=== PATIENT | male | born 1940 | race Caucasian/White ===

== ENCOUNTER 2024-10-08 07:18 | Day surgery (SDC) | payer BC, SELFPAY ==
[2024-10-08] VITALS (10 sets, daily range): BP systolic 96–142; BP diastolic 56–80; BMI 17.9
[2024-10-08] MEDS: LOW STRENGTH ASPIRIN 324 MG PO (07:57)
[2024-10-08] MEDS: NSS 219 ML IV (07:59)
--- NOTE | 2024-10-08 09:03 | ITS.CL.CATH ---
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
Cardiac Catheterization
Procedure Report:
LEFT HEART CATHETERIZATION
Date of Procedure: October 08, 2024
Procedures performed:
1: Coronary angiography
Primary Care Physician: Evelia San DO
Primary Miller Head: Dr. Jesse Rooney
INDICATION: The patient is an 83-year-old man with a past medical history significant for recent pacemaker in January of last year for intermittent third-degree AV block who is referred for coronary angiography in preparation for aortic valve
intervention. He also has persistent atrial fibrillation and is on Xarelto which was held for the procedure. On his September 29 pacemaker check he is in 93% A-fib. He is 98% ventricularly paced. But not ventricularly dependent on his recent pacer
check. He has some exertional dyspnea and chest tightness. Echocardiography performed on September 10 showed severe aortic valvular stenosis with a mean gradient of 56 mmHg and a valve area 0.8 cm�.
ACCESS: The patient was prepped and draped in usual sterile fashion. A 6 Polish sheath was placed in the right radial artery using the Seldinger over the wire technique.
HEMODYNAMIC FINDINGS (mmHg):
LV(s/d,EDP): Valve not crossed
Ao(s/d,m): 126/65, 85
ANGIOGRAPHIC FINDINGS:
Single-plane Left Ventriculography in STEWART Projection: Valve not crossed
Coronary Angiography:
Dominance: Right
Left Main: Large caliber, widely patent.
Left Anterior Descending: The left anterior descending artery is a large caliber vessel that is heavily calcified throughout its course. The proximal and mid vessel have mild to moderate nonobstructive luminal irregularity. The distal LAD is also
calcified and has a 70 to 80% stenosis as it wraps around the apex. Despite this there is MERY-3 distal flow. The LAD gives rise to 1 medium caliber diagonal branch that appears widely patent with mild luminal irregularities and normal flow.
Left Circumflex: The left circumflex is a large-caliber nondominant system that gives rise to 2 major obtuse marginal branches. The proximal circumflex has a smooth 40 to 50% stenosis. This is followed by a smooth 40% stenosis in the mid
circumflex. The first obtuse marginal branch is a relatively large vessel that has diffuse moderate disease with at worst a smooth proximal 50% stenosis. The second obtuse marginal branch is a smaller vessel that is ectatic in the proximal portion
but appears free of focal obstructive disease. These vessels have normal flow.
Right Coronary: The right coronary artery is a large-caliber dominant vessel that gives rise to a small caliber posterior descending artery and small posterior left ventricular branch system. The RCA ostium is calcified with complex 80% disease.
The mid right coronary artery has prominent ectasia and luminal irregularity suggestive of a prior healed ruptured plaque. Just beyond the acute margin is a smooth 70 to 80% stenosis followed by poststenotic dilatation. The distal vessels have
mild luminal irregularities throughout but are patent with normal flow.
Fluoroscopy Time (min): 4.4
Radiation Dose (mGy): 425
DAP (Gy.cm2): 25
Closure device: None. A TR band was applied for hemostasis at the right wrist.
Complications: None.
ASSESSMENT:
1: Diffuse multivessel coronary disease as described above. The RCA disease appears clearly obstructive. The distal LAD disease is obstructive but is so distal that should be treated medically.
CONCLUSIONS and RECOMMENDATIONS:
1: Medical therapy for coronary artery disease. I will add rosuvastatin 10 mg daily in an effort to get on statin therapy which she has not tolerated in the past. Resume Xarelto regular dosing.
2: Proceed with TAVR evaluation. If he is a TAVR candidate based on his CT angiography studies then I will plan to bring back for PCI of the ostial, mid, and distal RCA prior to TAVR. If he is not a TAVR candidate I would then consider SAVR with
single-vessel distal RCA bypass.
Nabeel Bruno M.D.
Copy to: Evelia San DO
--- NOTE | 2024-10-08 09:34 | CONSULT.STRU ---
Consultation
-
Date/Time Consultation Requested: 10/08/2024
Date/Time Consultation Performed: 10/08/2024
Requesting Provider: Nabeel Bruno MD
Performing Provider: NICOLAS Han
Reason for Consultation: / TAVR
Patient History
Physicians
Family Physician: Kaila Linares MD
Outpatient Help Desk Internship: Jesse Rooney MD
Primary Help Desk Internship: Jesse Rooney MD
History of Present Illness
Mr. Latif is a very pleasant 83 yo vibrant male with a past medical history significant for , CAD, HTN, PAF, esophageal ca, and ppm. His most recent echocardiogram from 09/10/2024 is notable for an EF 50-55%, AV P/M 83/56, MARIBELL 0.83, Pk abbie 4.55,
DI 0.26, trace AI, mild MAC, RVSP 36. Cardiac catheterization from 10/08/2024 demonstrates diffuse multivessel coronary disease. The RCA disease appears clearly obstructive. The distal LAD disease is obstructive but is so distal that should be
treated medically. From a symptomatology standpoint, patient describes a decrease in exercise tolerance and increased fatigue. The patient states that is SOB has significantly improved since the placement of PPM in January. Discussed the
pathophysiology and treatment options of including SAVR and TAVR. Discussed the evaluation process comprising of labs, CT scan, Dental clearance, CT surgical consult, and a heart team discussion. TAVR booklet, appointments, contact information,
and prescriptions given to patient and his family. Allowed for and answered questions to the best of my ability.
Past Medical History
Past Medical History: Atrial Fib, Cancer (esophageal cancer), HTN, MARIANELA, Valvular Disease (aortic stenosis) and Other (anemia)
Past Surgical History
Past Surgical History: Other (esophagectomy, PPM)
Dental History
UTD, patient will call with information
Family History
Mother: N/A
Father: N/A
Family Medical History: CAD
Social History
Alcohol: Occasional
Drug: None
Tobacco: Former Smoker
Personal:
Living: With Spouse
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
Allergies
Allergy/AdvReac Type Severity Reaction Status Date / Time
No Known Allergies Allergy Verified 10/08/24 07:40
Home Medications
�Medication �Instructions �Recorded �Confirmed �Type
esomeprazole magnesium 40 mg 40 mg PO DAILY 10/08/24 10/08/24 History
capsule,delayed release (Nexium)
rivaroxaban 20 mg tablet (Xarelto) 20 mg PO DAILY 10/08/24 10/08/24 History
STS%
STS %: 3.57
Review of Systems
-
History Source: Patient and Family
General: Reports Fatigue
HEENT: Reports No Symptoms
Respiratory: Reports SOB and MCCRAY
Cardiac: Reports No Symptoms
Abdomen/GI: Reports No Symptoms
: Reports No Symptoms
Musculoskeletal: Reports No Symptoms
Skin: Reports No Symptoms
Neurological: Reports No Symptoms
Vascular: Reports No Symptoms
Physical Exam
Vital Signs
Temp 98.8 F 10/08/24 07:56
Temp route: Oral 10/08/24 07:56
Pulse 72 10/08/24 08:45
Resp Rate 16 10/08/24 07:56
Blood pressure 142/80 10/08/24 07:56
SaO2 100 10/08/24 07:56
Oxygen Mode of Delivery Room air 10/08/24 07:56
Can the patient verbally communicate their pain? Yes 10/08/24 07:56
Actual Weight 73.1 kg 10/08/24 07:39
Body Mass Index (BMI) 17.9 10/08/24 07:39
Diagnostic Studies
Procedure Type:�CABG + AVR
Perioperative Outcome Estimate %
Operative Mortality 3.81%
Morbidity & Mortality 13.2%
Stroke 1.43%
Renal Failure 3.71%
Reoperation 3.95%
Prolonged Ventilation 8.31%
Deep Sternal Wound Infection 0.159%
Long Hospital Stay (>14 days) 10.1%
Short Hospital Stay (<6 days)* 22.2%
Procedure Type:�Isolated AVR
Perioperative Outcome Estimate %
Operative Mortality 3.57%
Morbidity & Mortality 9.84%
Stroke 0.753%
Renal Failure 3.04%
Reoperation 4.1%
Prolonged Ventilation 5.73%
Deep Sternal Wound Infection 0.087%
Long Hospital Stay (>14 days) 5.48%
Short Hospital Stay (<6 days)* 39.2%
PACEMAKER 02/15/2024
Implants:
Company: [email or web address] Rory LIU SN: [id number] left Pectoral
RA: Biotronik Solia S 45, SN: [id number], RAA
RV: Biotronik Solia S 60, SN: [id number], RV apical septum
Device Testing:
Sensing: RA 4.5 mV, RV 8.4 mV
Capture: RA 0.7 V@0.4ms, RV 0.4 V@0.4ms
Ohms: RA 507, RV 702
Final Programming:
Allen Pacing DDD 60-130 ppm
ECHOCARDIOGRAM 09/10/2024:
SUMMARY
1. Left ventricular ejection fraction, by visual estimation, is 50 to 55%.
2. Concentric remodeling of the left ventricle.
3. Indeterminate LV diastolic function.
4. Normal right ventricular size and systolic function.
5. Pacer wire noted in the right heart.
6. The left atrium is normal in by volume index 24.9 mL/m2.
7. Aortic valve is tricuspid and calcified. Severe aortic valve stenosis. Trace aortic regurgitation.
8. AoV velocity of 4.55 m/s; Peak aortic valve gradient = 82.7 mmHg; Mean gradient = 55.5 mmHg; AoV Area by continuity equation = 0.83 cm2; AoV Dimensionless Index = 0.26.
9. There is moderate thickening of the anterior and posterior leaflets of the mitral valve. Moderate mitral annular calcification.
10. Mild mitral valve regurgitation is seen.
11. Right atrial pressure of (3 mmHg), the estimated right ventricular systolic pressure is normal at (36.1 mmHg).
12. Study done in atrial fibrillation/atrial flutter.
13. Compared to prior study 01/2024, gradients are higher.
CARDIAC CATHETERIZATION 10/08/2024
ASSESSMENT:
1: Diffuse multivessel coronary disease as described above. The RCA disease appears clearly obstructive. The distal LAD disease is obstructive but is so distal that should be treated medically.
CONCLUSIONS and RECOMMENDATIONS:
1: Medical therapy for coronary artery disease. I will add rosuvastatin 10 mg daily in an effort to get on statin therapy which she has not tolerated in the past. Resume Xarelto regular dosing.
2: Proceed with TAVR evaluation. If he is a TAVR candidate based on his CT angiography studies then I will plan to bring back for PCI of the ostial, mid, and distal RCA prior to TAVR. If he is not a TAVR candidate I would then consider SAVR with
single-vessel distal RCA bypass.
Exam
General: Well Developed, Well Nourished, No Apparent Distress and Comfortable
HEENT: Normocephalic, PERRLA and EOMI
Neck: Trachea Midline
Respiratory: Clear
Cardiac: Murmur (IV/ MARCELINO)
GI: Soft, Non Tender and Non Distended
Rectal: Deferred by Provider
Skin: Warm and Dry
Neuro: Awake, Alert and Oriented
Extremities: Lower Level Edema (NONPITTING)
Psych: Calm
Assessment / Plan
-
Aortic stenosis
Continue TAVR evaluation
Will need to start aspirin. If PCI to RCA DAPT
Trend creatinine (Rx)
TAVR CT scan (10/21)
CT surgical consult (11/11 MPT)
Frailty testing and Kccq12 at consult
dental clearance
Heart team discussion
Data Reviewed
-
Satellite Installation Technician: Report Reviewed by me and Discussed with Physician
Echo: Report Reviewed by me and Discussed with Physician
Labs: Labs Reviewed by me
Old Records: Reviewed
Total Time Spent with Patient (in minutes): 45
[2024-10-08] MEDS: NSS 1000 IV (09:46)
== END 2024-10-08 12:40 | disposition home or self-care (01) ==
LOC: CATH 07:18
PROVIDERS: ATTENDING PHYSICIAN Internal Medicine Interventional Cardiology; FAMILY PHYSICIAN Family Medicine; OTHER PHYSICIAN Internal Medicine Cardiovascular Disease
DX: I25.10 Atherosclerotic heart disease of native coronary artery without angina pectoris (principal); I25.84 Coronary atherosclerosis due to calcified coronary lesion; I44.2 Atrioventricular block, complete; I48.19 Other persistent atrial fibrillation; Z79.01 Long term (current) use of anticoagulants; R06.09 Other forms of dyspnea; R07.89 Other chest pain; I10 Essential (primary) hypertension; Z85.01 Personal history of malignant neoplasm of esophagus; G47.33 Obstructive sleep apnea (adult) (pediatric); Z82.49 Family history of ischemic heart disease and other diseases of the circulatory system; Z87.891 Personal history of nicotine dependence; Z95.0 Presence of cardiac pacemaker
CPT/HCPCS: 93458; C1769; C1894; Q9967

== ENCOUNTER → 2024-10-21 09:22 | Outpatient (REF) | payer OTHER, SELFPAY | LOC: RAD 09:22 | PROVIDERS: ATTENDING PHYSICIAN Nurse Practitioner Acute Care | DX: I35.0 Nonrheumatic aortic (valve) stenosis (principal) | CPT/HCPCS: 74174; 75572; Q9967 ==

== ENCOUNTER 2024-11-05 08:03 | Day surgery (SDC) | payer BC, SELFPAY ==
[2024-11-05] VITALS (14 sets, daily range): BP systolic 97–130; BP diastolic 59–77; BMI 23.3
[2024-11-05] MEDS: LOW STRENGTH ASPIRIN 81 MG PO (08:51)
[2024-11-05 09:06] LABS: Hematocrit 37.4 % (39.0-52.0); Hemoglobin 11.8 g/dL (13.0-18.0); Mean Corp Hgb Conc. 31.6 g/dL (33.0-37.0); Mean Corpuscular Volume 83.5 fL (80.0-94.0); Platelet Count 177 10^3/uL (130-400); Red Cell Dist. Width 16.9 % (11.5-14.5)
[2024-11-05 09:32] LABS: Blood Urea Nitrogen 19 mg/dl (9-20); Calcium 8.9 mg/dl (8.4-10.2); Carbon Dioxide 25 mmol/L (22-30); Chloride 106 mmol/L (98-107); Estimated Creatinine Clearance 61 ml/min; Glucose 102 mg/dl (70-99); Potassium 4.4 mmol/L (3.5-5.1); Sodium 139 mmol/L (135-145); eGFR > 60.00
[2024-11-05] MEDS: PLAVIX 300 MG PO (09:39)
--- NOTE | 2024-11-05 09:57 | ITS.CL.ANGIO ---
Finish Patcher - Angioplasty
Angioplasty
Procedure Report:
LEFT HEART CATHETERIZATION
Date of Procedure: November 05, 2024
Procedures performed:
1: Complex percutaneous coronary intervention of the right coronary artery with placement of 3 drug-eluting stents in the ostium, mid and distal vessel (3.5 x 22 mm Dusty postdilated at high pressure with a 3.75 mm diameter noncompliant balloon, 5 x
15 mm [place] postdilated at high pressure with a 5.0 mm diameter noncompliant balloon, and a 3.5 x 18 mm Dusty postdilated at high pressure with a 3.75 mm diameter noncompliant balloon respectively)
Primary Care Physician: Evelia San DO
Primary Spice Miller: Dr. Jsese Rooney
INDICATION: The patient is an 83-year-old man with a past medical history significant for recent pacemaker in January of last year for intermittent third-degree AV block who was referred for coronary angiography in preparation for aortic valve
intervention. He also has persistent atrial fibrillation and is on Xarelto which was held for the procedure. On his September 29 pacemaker check he is in 93% A-fib. He is 98% ventricularly paced. But not ventricularly dependent on his recent pacer
check. He has some exertional dyspnea and chest tightness. Echocardiography performed on September 10 showed severe aortic valvular stenosis with a mean gradient of 56 mmHg and a valve area 0.8 cm�. Cardiac catheterization performed on October 08 showed
complex multilevel obstructive right coronary artery disease. He was presented to the [facility] valve team and after review of imaging is felt to be a reasonable TAVR candidate. He is now referred for RCA intervention prior to planned TAVR.
Xarelto was held for the procedure. He was pretreated with aspirin and Plavix.
ACCESS: The patient was prepped and draped in usual sterile fashion. A 6 Dutch sheath was placed in the right radial artery using the Seldinger over the wire technique.
HEMODYNAMIC FINDINGS (mmHg):
LV(s/d,EDP): Valve not crossed
Ao(s/d,m): 117/57, 81
ANGIOGRAPHIC FINDINGS:
Coronary Angiography:
Please refer to full diagnostic report performed on October 08, 2024.
Percutaneous Coronary Intervention (PCI): The patient was pretreated with oral aspirin and Plavix. A 6 Dutch JR4 guiding catheter was used to engage the right coronary artery. A short BMW wire was advanced across the ostial, mid, and distal
stenoses and the tip positioned distally in the PLV branch. A 2.5 x 15 mm balloon was used to successfully predilate the distal lesion. The same 2.5 mm balloon was used to predilate the ostial disease. Attempts to deliver a 3.0 mm noncompliant
balloon to the distal lesion to redilate were not successful due to guide support. A 6 Dutch Guideliner was employed to successfully deliver the noncompliant balloon to redilate the distal lesion. Next a 3.5 x 18 mm [place] drug-eluting stent was
deployed at the distal lesion. The stent was postdilated with a 3.75 mm diameter noncompliant balloon at high pressure and distal to proximal fashion. Next I turned my attention to the mid lesion. A 5.0 x 15 mm [place] drug-eluting stent was
deployed primarily at 14 [place] at the lesion. The stented segment was postdilated at high pressure with a 5.0 mm diameter noncompliant balloon. Finally I turned my attention to the ostial lesion. A 3.5 x 22 mm [place] drug-eluting stent was deployed
at 14 [place]. The stent was postdilated with a 3.75 mm diameter noncompliant balloon at 16 [place] distally and 20 [place] flared at the ostium.
FINAL RESULT: 0% in-stent residual stenosis in the ostial, mid, and distal stents with an outstanding angiographic result and normal flow in all vessels.
Fluoroscopy Time (min): 14.1
Radiation Dose (mGy): 909
DAP (Gy.cm2): 47
Closure device: None. A TR band was applied for hemostasis at the right wrist.
Complications: None.
ASSESSMENT:
1: Complex PCI of the multilevel right disease with placement of 3 separate drug-coated stents as described above.
CONCLUSIONS and RECOMMENDATIONS:
1: Routine post PCI and post drug-eluting stent medical therapy and monitoring. My plan will be to reduce the Xarelto dose from 20 mg to 15 mg daily with clopidogrel 75 mg daily for a year after stent placement. I will give triple therapy with
aspirin 81 mg daily for a week and then stop aspirin.
2: Proceed with planned TAVR evaluation.
Nabeel Bruno M.D.
[2024-11-05 11:17] LABS: ACT-LR - POC 361 Seconds (116-155)
[2024-11-05 11:54] LABS: ACT-LR - POC > 397 Seconds (116-155)
[2024-11-05 11:54] LABS: ACT-LR - POC > 397 Seconds (116-155)
--- NOTE | 2024-11-05 16:29 | W.PN.UPDATE ---
Update Note
Progress Note Update
84 yo WM s/p PCI RCA x3 ABEL (same day). He denies cp, sob, sola diet, voiding, EKG Apaced no ST changes, R rad site c/d/i no HT. He will be on DAPT with Xarelto 15mg for 1 week then stop ASA and continue Plavix/Xarelto. He is a new start to
rosuvastatin and has been having some mild myalgias we will keep current dose and will need recheck LFT's, lipid profile in 6-8 weeks. Cardiac rehab c/s. Activity restrictions reviewed. He will f/u Dr. Rooney in 2-[address] Dixon for TAVR eval.
He is for d/c home after 430p.
== END 2024-11-05 16:34 | disposition home or self-care (01) ==
LOC: CATH 08:03
PROVIDERS: ATTENDING PHYSICIAN Internal Medicine Interventional Cardiology; FAMILY PHYSICIAN Family Medicine; REFERRING PHYSICIAN Internal Medicine Cardiovascular Disease
DX: I25.10 Atherosclerotic heart disease of native coronary artery without angina pectoris (principal); I35.0 Nonrheumatic aortic (valve) stenosis; I48.19 Other persistent atrial fibrillation; Z95.0 Presence of cardiac pacemaker; Z79.01 Long term (current) use of anticoagulants; Z79.02 Long term (current) use of antithrombotics/antiplatelets; Z79.82 Long term (current) use of aspirin
CPT/HCPCS: 80048; 85027; 85347; 93005; C1725; C1769; C1874; C1887; C1894; C9600; Q9967

== ENCOUNTER 2024-11-27 07:20 | Inpatient (IN) | payer BC, MEDICARE, SELFPAY ==
[2024-11-18 10:02] VITALS: BMI 23.4
[2024-11-18 10:47] LABS: Hematocrit 36.0 % (39.0-52.0); Hemoglobin 11.3 g/dL (13.0-18.0); Mean Corp Hgb Conc. 31.4 g/dL (33.0-37.0); Mean Corpuscular Volume 84.7 fL (80.0-94.0); Nucleated Red Blood Cells % 0 % (-); Platelet Count 188 10^3/uL (130-400); Red Cell Dist. Width 16.8 % (11.5-14.5)
[2024-11-18 11:09] LABS: INR 1.65; PT 19.7 Sec (11.4-14.6)
[2024-11-18 11:17] LABS: Urine Character Clear (Clear)
[2024-11-18 11:20] LABS: ALT (SGPT) < 10 U/L (0-50); AST (SGOT) 21 U/L (17-59); Albumin 4.1 g/dl (3.5-5.0); Alkaline Phosphatase 72 U/L (38-126); Blood Urea Nitrogen 18 mg/dl (9-20); Calcium 9.0 mg/dl (8.4-10.2); Carbon Dioxide 32 mmol/L (22-30); Chloride 104 mmol/L (98-107); Estimated Creatinine Clearance 61 ml/min; Glucose 79 mg/dl (70-99); Potassium 4.8 mmol/L (3.5-5.1); Sodium 140 mmol/L (135-145); Total Protein 7.0 g/dl (6.3-8.2); eGFR > 60.00
[2024-11-18 12:02] LABS: Glycohemoglobin (HgbA1c) 5.7 % (4.0-5.6)
--- NOTE | 2024-11-18 12:11 | CM ---
spoke to pt in PAT's, we discussed preop TAVR teaching including lifting and driving restrictions. he is prev inded, lives with his in a 2 story home with a first floor set up and 2 steps to enter. he has the TAVR educ book, soap and
instructions. he is agreeable to a f/u visit from the ct transitional care nurse after dc. plan is for TAVR 11/27, cm role explained and all questions answered.
[2024-11-27] VITALS (13 sets, daily range): BP systolic 94–148; BP diastolic 47–69; BMI 22.6
--- NOTE | 2024-11-27 08:29 | W.CVOR.SURPR ---
CVOR Surgeon Immed Pre Op
-
I have examined this patient prior to performance of the scheduled procedure.
The patient's condition is unchanged from the time of the dictated/written History and
Physical and the patient is able to undergo the scheduled procedure.
TF TAVR
Full Rescue
[2024-11-27 10:36] LABS: ACT-LR - POC 392 Seconds (116-155)
--- NOTE | 2024-11-27 10:55 | W.PN.CT.SURG ---
CT Surgery Operative Note
-
OPERATIVE REPORT
Preoperative Diagnosis: Severe aortic valve stenosis, symptomatic
Postoperative Diagnosis: Same
Procedure(s) Performed: Right trans femoral TAVR with a 26 mm +1 cc Osullivan TAVR valve
Date of Procedure: 11/27/2024
Comorbidities:
1. Severe aortic stenosis, symptomatic
2. Hypertension
3. Hyperlipidemia
4. Paroxysmal atrial fibrillation
5. Permanent pacemaker for symptomatic bradycardia and heart block
6. History of esophagectomy for esophageal cancer
7. Chronic diastolic heart failure
8. MARIANELA
9. Multivessel coronary artery disease status post recent PCI and stenting to the RCA
Cardiac Surgeon: Ronni Dixon MD, MS
Racing Secretary: Maxwell Prieto MD
Anesthesia: Conscious Sedation and Local Analgesia
EBL: 100cc
Products: none
Implant: 26 mm Osullivan ASMITA Resilia TAVR valve, SN: [id number]
Indication(s) for Procedures: 84-year-old male with symptomatic severe aortic stenosis. CT-TAVR protocol revealed acceptable anatomy for TAVR access and implantation.
Start time: 0912hrs
Deployment time: 1028hrs
End time: 1047hrs
Radiation Dose (mGy): 175
DAP (cm2.Gy): 22
Fluoroscopy time (minutes): 8.9
Contrast volume (ml): 130
TAVR gradient (mmHg): 3-4mmHg
Heparin Dose: 5500units
Protamine Dose: 30mg
Final Valve Positionin/10
Findings: Preoperative LVEF was 60% and was 60% following TAVR without inotropic support. Function was overall normal without regional wall motion abnormalities or dyskinesia. The aortic valve was well seated with only trace detectable PVL and mean
gradient across the new valve was 3-4 mmHg. After initial deployment of the valve, he returned to his qagan tayagungin rhythm and he already had a PPM in place so the temp wire was removed. With his recent ostial RCA stent, and borderline cross sectional
area, we opted to change out strategy to a 26mm + 1cc TAVR valve. There was successful placement of 26mm TAVR valve without acute complications.
Access:
1. Device -right common femoral artery, perclose x 2
2. Pigtail -left common femoral artery [+ 6Fr angioseal]
3. Transvenous Pacer -left common femoral vein
Description of Procedure: The patient was taken to the laborer ammunition assembly. Their identity and procedure to be performed were verified and they were positioned supine on the laborer ammunition assembly table. Induction via conscious sedation. The patient was then prepped and
draped from chin to thigh in a sterile fashion. A preoperative time-out was performed with all members of the team present. Arterial and venous access was performed using fluoroscopy and ultrasound guidance with micropuncture and Seldinger
technique. Two perclose devices were used on the device side followed by access to the aorta with a stiff wire to facilitate E-sheath placement. Heparin was given. A stiff straight wire and AL-1 catheter was used to cross the aortic valve. The stiff
wire was exchanged for an extra stiff coiled tip wire. An LVEDP was measured here and found to be 17 mmHg the valve was prepped and mounted on to the device carrier. An ACT of >250 was achieved. We verified x 3 that the valve was mounted in the
correct orientation with the skirt of the valve directed toward the tip of the device carrier. We advanced the device into the descending thoracic aorta where the valve was them mounted onto the balloon under fluoroscopy. The device was flexed and
advanced over the arch into the root and positioned across the aortic valve. Contrast fluoroscopy was used to visualize the prosthesis across the valve and to guide positioning. A pigtail catheter in the RCC as used as a guide. We aimed to have the
bottom of the device marker at the annular hinge point. The device sheath was pulled back. We performed a quick pre-deployment time out. The pacer was turned on and had capture. Blood pressure fell accordingly, angiography was done to verify the
intended final placement and the valve was deployed with 5 seconds of rapid pacing to nominal volume. The balloon was deflated and the pacer was turned off. We had recovery of vitals. The device carrier was unflexed and positioned back in the
descending thoracic aorta. A transthoracic echocardiogram was performed. The device was removed from the E-Sheath maintaining wire access followed by removal of the E-sheath as we cinched down the perclose devices. There was acceptable hemostasis.
The pigtail was withdrawn into the descending/abdominal and completion aortogram with runoff run-off angiography was performed. Using a rim catheter, an additional isolated shot of the right common femoral vessels after the bifurcated was done as
it was not overlapping vessels and hard to discern whether there was any issues. None was found. There was no stenosis or dissection of bilateral iliofemoral systems. There was acceptable hemostasis of bilateral groins and manual pressure was held
following wire removal. Low dose protamine was administered after checking another ACT.
All instrument, sponge, and needle counts were confirmed to be correct x 2 at the end of the operation. The patient was transferred to the cardiac intensive care unit in stable condition.
I, Dr. Ronni Dixon, was present, scrubbed for, and performed all critical elements of this procedure.
Ronni Dixon MD
Cardiothoracic Surgeon
[facility]
This operative dictation was created using the [employer] dictation system. Please excuse any grammatical, typographical, or 'sound alike' errors
--- NOTE | 2024-11-27 11:46 | ITS.CL.TAVR ---
Patient Partner - TAVR Report
TAVR PRocedure
Procedure Report:
TRANSCATHETER AORTIC VALVE REPLACEMENT
Date of Procedure: November 27, 2024
Referring: Dr. Jesse Rooney
Operators: Drs. Jesse Prieto and Ronni Dixon
PROCEDURE PERFORMED:
1. Ultrasound guidance was utilized to gain access in the left common femoral artery, left common femoral vein, and right common femoral artery. Images were obtained as part of the patient's permanent medical record.
2. Successful placement of 26 mm Osullivan ASMITA 3 ULTRA-RESILIA aortic valve via right common femoral approach.
PREPROCEDURE NYHA CLASS: 3
DESCRIPTION OF PROCEDURE: The patient was referred for assessment of severe symptomatic aortic stenosis and following a comprehensive evaluation it was felt that transcatheter aortic valve replacement (TAVR) would be the most appropriate treatment.
Informed consent was obtained prior to the procedure. A 'time-out' was called and the procedural plan was verbally confirmed by anesthesia, surgery, perfusion, and cardiac cath technologist staff.
Arterial was obtained in the left common femoral artery using ultrasound guidance and micropuncture technique. A 6 Fr sheath was inserted. Ultrasound guidance was then utilized to gain access into the left common femoral vein and a 6 Fr sheath was
inserted. Attention was then turned to the right common femoral artery. Ultrasound guidance was utilized and access was obtained in the right common femoral artery using ultrasound guidance. Angiography through the micropuncture sheath revealed
appropriate positioning of the arteriotomy for preclosure with 2 Perclose devices. A 0.035 inch J-wire was then reinserted through the micropuncture sheath and a 6 Fr sheath was then inserted. Images were obtained and stored as part of the
patient's permanent medical record.
A transvenous pacemaker wire was then advanced from the left common femoral vein to the right ventricular apex where excellent pacing thresholds were obtained.
An angled pigtail catheter was then advanced through the left common femoral sheath and positioned in the proximal ascending thoracic aorta / right coronary cusp. Angiography was performed to define a coplanar angle facilitating positioning and
delivery of the TAVR device. CAMBODIAN 18/CAU 11 appear to be a reasonable coplanar angle.
Pre-closure of the right femoral arteriotomy was then performed using 2 Perclose devices and was followed by placement of an 8 Fr arterial sheath.
An AL-1 catheter was then advanced to the proximal descending thoracic aorta over 0.035' J-tipped guidewire. An Amplatz Extra-Stiff wire was then advanced through the AL-1 catheter to the proximal descending thoracic aorta. The AL-1 catheter was
removed and the supportive wire was utilized to facilitate delivery of the Osullivan eSheath and dilator. Heparin, 6,500 units, was administered and the ACT was monitored throughout the procedure.
The AL-1 catheter was then readvanced through the Osullivan eSheath. The 0.035' stiff wire was allowed to drift across the aortic arch and the AL1 was positioned just above the aortic valve. The stenotic leaflets were probed with a Soft-tip Straight
wire. The aortic leaflets were crossed and the AL-1 catheter followed the Soft-tip Straight wire to the mid left ventricle. The wire was removed. Left ventricular end-diastolic pressures was measured at 27 mmHg.
An Amplatz Extra-Stiff wire with a generous curved tip was then advanced to the mid left ventricle. The AL-1 catheter was removed and the Amplatz wire was left in place in order to facilitate delivery of the Osullivan delivery system. A 26 mm
Osullivan ASMITA 3 ULTRA-RESILIA valve was brought to the table and the orientation of the valve on the balloon delivery system was confirmed by all operators. The ASMITA 3 ULTRA-RESILIA valve was advanced through the eSheath and into the proximal
descending thoracic aorta. The ASMITA valve was centered on the delivery balloon and the entire system was retroflexed as across the aortic arch in an CAMBODIAN projection. The ASMITA 3 ULTRA-RESILIA delivery system was then advanced across the stenotic
aortic leaflets. The pusher was retracted. Angiography confirmed appropriate positioning of the valve and rapid pacing was undertaken. The 26 mm ASMITA 3 ULTRA-RESILIA valve was deployed during rapid pacing. Valve deployment was uneventful.
Aortography following valve deployment suggested trivial aortic insufficiency while the wire was still across the valve in the left ventricle.
The post valve deployment transthoracic echocardiogram was notable for a mean gradient of 5 mmHg.
The Osullivan valve delivery system was removed. The Osullivan eSheath was removed and the Perclose knots were advanced to the arteriotomy site with excellent hemostasis. Angiography after the Perclose knots were advanced to the arteriotomy site and
demonstrated good distal runoff.
A 6 [place] Angio-Seal was then utilized to obtain hemostasis in the left common femoral artery. The temporary pacemaker and 6 Fr sheath were removed and manual pressure was held over the 6 [place] femoral venous access.
Protamine was administered to reverse the intravenous anticoagulant.
Fluoro Time: 6.8 min, Dose: 529 mGy, DAP : 39.9 gy.cm2
CONCLUSIONS:
1. Severe symptomatic aortic stenosis. Successful deployment of a 26 mm ASMITA 3 ULTRA-RESILIA valve with trace aortic insufficiency and mean gradient of 5 mmHg.
2. The right common femoral arteriotomy was closed with 2 Perclose devices and successful closure of the left arteriotomy site with a 6 Fr Angio-Seal
Copy to: Dr. Jesse Rooney
--- NOTE | 2024-11-27 12:42 | CM ---
Reviewed chart. Mr. Latif is in the operating room today. Prior to admission he resides with his spouse in a two story home with two steps to enter. He has a first floor set-up. Prior to admission he was independent with ambulation and adls. He
has a prescription plan. Medical work-up in progress. The discharge plan is to return home with his spouse and a home visit by the Transitional Care Nurse when medically stable.
[2024-11-27] MEDS: ANCEF 10 IV (13:08)
[2024-11-27] MEDS: ANCEF IV (13:08)
--- NOTE | 2024-11-27 13:10 | PTCARENOTE ---
Received pt post TAVR. VSS, neurological checks within normal limits. Post TAVR orders noted. Will monitor.
[2024-11-27] MEDS: ANCEF 5 IV (19:13)
--- NOTE | 2024-11-28 01:54 | PTCARENOTE ---
Received patient at change of shift. V paced on the monitor, HR in the 80s. Bilateral groins intact and soft at change of shift. At 23:00, L groin with hematoma. JAVA DEVELOPER Liza Bravo notified. Pressure held for 20 mins, groin now soft. No complaints
from pt at this time, call lawson within reach.
--- NOTE | 2024-11-28 02:33 | W.PN.CT ---
Today's Communication / Plan
-
pod#1
- no conduction issues overnight
- check CXR, TTE, ECG
- if stable, plan to DC home on Xarelto plus Plavix due to recent RCA stent
Assessment / Plan
-
Nonrheumatic severe aortic stenosis s/p Right trans femoral TAVR #26 mm +1 cc Osullivan by Drs. Ronni Dixon and Jesse Prieto-pod#1
SIVAN: EF 60-65%, tr PVL, AV mean gradient 3-4mmHg
1. Hypertension
2. Hyperlipidemia
3. Paroxysmal atrial fibrillation
4. 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
5. History of esophagectomy for esophageal cancer
6. Chronic diastolic heart failure
7. MARIANELA
8. Multivessel coronary artery disease s/p drug eluting stent to RCA (11/05/24)
9. esophageal cancer s/p esophagectomy 2010 @ [facility], chemotherapy, XRT
Discussed patient care with: Cardiology, Nursing and Respiratory Therapy
Subjective
Procedure
Nonrheumatic severe aortic stenosis s/p Right trans femoral TAVR #26 mm +1 cc Osullivan by Drs. Ronni Dixon and Jesse Prieto-pod#1
-
Date of Service: November 28, 2024
Objective Data
-
PT 19.7 Sec (11.4-14.6) H 11/18/24 10:14
INR 1.65 11/18/24 10:14
Vital Signs
Vital Signs
Temp Pulse Resp BP Pulse Ox
98.6 F 74 18 148/66 98
11/27/24 23:22 11/27/24 19:00 11/27/24 23:22 11/27/24 18:17 11/27/24 23:22
CT Intake/Output/Weight
11/27/24 11/27/24 11/28/24
06:59 18:59 06:59
Intake Total 1100 / 1460 360 / 1460
Balance 1100 / 1460 360 / 1460
SaO2: 98
Physical Exam
-
General: AOx3
Cardiovascular: Regular rate & rhythm (A-sensed/V-paced)
Respiratory: Clear
Extremities: No Edema and Other (B/L groin sites intact w/o bleeding/hematoma)
Data Reviewed
-
Lab Results: Results Reviewed
Medications: Active Meds Reviewed
Chest X-Ray: Report Reviewed and Image Reviewed
ECG: Report Reviewed and Image Reviewed
[2024-11-28 03:03] VITALS: BP 127/64
[2024-11-28 03:18] VITALS: BMI 22.7
[2024-11-28 03:57] LABS: Hematocrit 30.9 % (39.0-52.0); Hemoglobin 10.1 g/dL (13.0-18.0); Mean Corp Hgb Conc. 32.7 g/dL (33.0-37.0); Mean Corpuscular Volume 82.6 fL (80.0-94.0); Platelet Count 121 10^3/uL (130-400); Red Cell Dist. Width 16.6 % (11.5-14.5)
[2024-11-28 04:23] LABS: Blood Urea Nitrogen 19 mg/dl (9-20); Calcium 8.5 mg/dl (8.4-10.2); Carbon Dioxide 25 mmol/L (22-30); Chloride 106 mmol/L (98-107); Estimated Creatinine Clearance 68 ml/min; Glucose 82 mg/dl (70-99); Magnesium 2.0 mg/dl (1.6-2.3); Potassium 4.3 mmol/L (3.5-5.1); Sodium 137 mmol/L (135-145); eGFR > 60.00
--- NOTE | 2024-11-28 07:06 | W.PN.ANS.POP ---
Anesthesia Post Operative
- Anesthesia Post Op Note
Vital Signs Stable-See Nursing Note: Yes
Airway Patent: Yes
Adequate Pain Control: Yes
Change in Mental Status: No
Current Postoperative Nausea & Vomiting: No
Anesthesia Complications: No
General Anesthetic Recall: No
Unplanned Admission: No
Post Op Hydration Adequate: Yes
[2024-11-28 08:07] VITALS: BP 121/70
--- NOTE | 2024-11-28 09:11 | W.PN.CARDCBS ---
Today's Communication / Plan
-
Recommendation
Awaiting echocardiogram
Will follow-up with Dr. Rooney
Impression / Plan
-
IMPRESSION:
- Severe symptomatic aortic stenosis status post TAVR with placement of a 26 mm Osullivan ASMITA ultra Resilia valve
- Symptomatic bradycardia s/p permanent pacemaker placement
- Hypertension
- Paroxysmal atrial fibrillation
- History of esophageal cancer
RECOMMENDATION:
- Postprocedural looks well. Both arteriotomy sites are soft without bruit.
- Will check echocardiogram
Progress Note - Peer Educator
Subjective
Date of Service: November 28, 2024
Feels well and without complaint
Objective
Labs:
11/28/24 03:11
11/28/24 03:11
Labs
Hgb 10.1 g/dL (13.0-18.0) L 11/28/24 03:11
Hct 30.9 % (39.0-52.0) L 11/28/24 03:11
Plt Count 121 10^3/uL (130-400) L 11/28/24 03:11
PT 19.7 Sec (11.4-14.6) H 11/18/24 10:14
INR 1.65 11/18/24 10:14
Sodium 137 mmol/L (135-145) 11/28/24 03:11
Potassium 4.3 mmol/L (3.5-5.1) 11/28/24 03:11
BUN 19 mg/dl (9-20) 11/28/24 03:11
Creatinine 0.8 mg/dL (0.7-1.3) 11/28/24 03:11
Glucose 82 mg/dl (70-99) 11/28/24 03:11
Vital Signs and I&O:
Vital Signs
Temp Pulse Resp BP Pulse Ox
98.2 F 82 20 127/64 98
11/28/24 08:08 08/01/25 05:45 11/28/24 08:08 11/28/24 03:03 11/28/24 08:08
Vital Signs
Temp Pulse Resp BP Pulse Ox
98.2 F 82 20 127/64 98
11/28/24 08:08 11/28/24 05:45 11/28/24 08:08 11/28/24 03:03 11/28/24 08:08
Intake & Output
11/25/24 11/26/24 11/27/24 11/28/24
23:59 23:59 23:59 23:59
Intake Total 1460 / 1460
Output Total 300 / 300
Balance 1460 / 1460 -300 / -300
Physical Exam
GEN: AAO x 3. No acute distress
HEENT: NC/AT, sclera are anicteric
NECK: Supple. Normal JVP
LUNGS: Clear to bases bilaterally. No wheezing or rhonchi
CV: Regular rate and rhythm. Normal S1/S2. No S3, No S4. Murmur: I/ murmur USB
ABD : Soft, NT, Bowel sounds are present.
EXT: No CCE, Femoral right and left arteriotomy sites are dry and soft. No bruits are noted.
NEURO: No focal neurologic deficits
[2024-11-28] MEDS: THERAGRAN 1 TABLET PO (09:15)
[2024-11-28] MEDS: CRESTOR 10 MG PO (09:16)
[2024-11-28] MEDS: PROTONIX 40 MG PO (09:16)
[2024-11-28] MEDS: PLAVIX 75 MG PO (09:16)
--- NOTE | 2024-11-28 09:29 | CM ---
Reviewed chart. Met with Mr. Latif to review discharge plans. He states he is feeling well and maybe able to go home soon. He states prior to admission he resides with his spouse in a two story home with two steps to enter. He states he has a
first floor set-up with his main suite on that level. He states prior to admission he was independent with ambulation and adls. He states he aguilera not have any DME in the home He states he has a prescription plan and uses [facility]. He
states his spouse will be home to assist in his care if needed. We reviewed a home visit by the Transitional Care Nurse. He is agreeable to a home visit. Medical work-up in progress. The discharge plan is to return home with his spouse and a home
visit by the Transitional Care Nurse when medically stable.
--- NOTE | 2024-11-28 11:30 | W.DCSUMMARY ---
Discharge Summary
Discharge Data
Date of Admission: 11/27/24
Date of Discharge: 11/28/24
-
Pending Results: No
Hospital Course
Primary care physician: Evelia San
Outpatient knife finisher: Jesse Rooney
Inpatient consultants: [email or web address]
Procedures:
1. 11/27/24 Right Transfemoral TAVR #26mm Osullivan Jean Resilia valve
Primary Diagnosis:
1. severe aortic stenosis
2. chronic diastolic heart failure
3. Multivessel coronary artery disease s/p drug eluting stent to RCA (11/05/24)
Secondary Diagnoses:
1. Hypertension
2. Hyperlipidemia
3. Paroxysmal atrial fibrillation
4. 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
5. History of esophageal cancer s/p esophagectomy 2010, chemo/XRT
6. MARIANELA
HPI: Patient is an 84-year-old male With complaints of dyspnea on exertion, and known aortic stenosis. Most recent echo demonstrates severe aortic stenosis with peak and mean gradients of 83/56 mmHg with aortic valve area of 0.8 cm�. EF is
preserved at 50 to 55%. Subsequent cardiac catheterization in September 2024 demonstrated multivessel coronary artery disease. Decision was made to move forward with PCI of his coronary disease followed by subsequent TAVR.After all preoperative workup
was completed he was deemed a suitable candidate to undergo the procedure.
Hospital course: Patient was brought in electively on 11/27/24 where he underwent an uncomplicated right transfemoral TAVR by Drs. Dixon and Conner. Postop EKG demonstrates an a sensed V paced rhythm, his groins remained stable. On postop day 1
chest x-ray is unremarkable, EKG is unchanged. Follow-up echocardiogram demonstrates a mean gradient of 5 mmHg with trivial perivalvular AI. Patient is discharged to home with close follow-up with the transitional nurse from [facility] who
will see him in a few days.
Home medication changes: Patient to resume all home medications, instructed to stop taking baby aspirin which was started only while Xarelto was on hold.
Discharge Plan
-
Patient Disposition: Home (Routine Discharge)
Discharge Diagnosis/Procedures: R transfemoral TAVR #26mm Osullivan (11/27/24)
Condition: Good
Diet: Low Cholesterol and Low Sodium
Activity: No restrictions
Driving Restrictions: As prior to admission
Bathing Restrictions: None
Others Tests: Dr. Justice office will call you for a doctors appointment and ECHO in four weeks. Please call the office if you do not hear from them.
Other Services: Cardiac Rehab
Specialty Instructions: Weigh Daily- Call MD for wt gain/loss 3 lbs overnight/5 lbs in 1 week
Referrals:
CT Transitional Care Nurse [Outside] - in one to two days
Referral Note:
The Cardiothoracic Transitional Care Nurse will call you to set up a visit in 1-2 days.
[facility] [Outside]
Referral Note: Cardiac Rehab Orientation appointment and� First Exercise appointment is on 01/06/25 at 1:00
The Cardiac Rehab gym is located on the first floor of the [facility].
Jesse Rooney DO [Affiliate, Cardiology]
Referral Note: Dr. Justice office will call you for a doctors appointment and ECHO in four weeks. Please call the office if you do not hear from them.
Evelia San DO [Family Provider, Family Practice]
Prescriptions:
Continued
esomeprazole magnesium [Nexium] 40 mg Capsule,Delayed Release(Dr/Ec)
40 mg PO DAILY
clopidogrel [Plavix] 75 mg Tablet
75 mg PO DAILY
multivitamin Tablet
1 tab PO DAILY
rosuvastatin 10 mg tablet
10 mg PO DAILY Qty: 30 5RF
Xarelto 15 mg tablet
15 mg PO QPM Qty: 30 5RF
Discontinued
aspirin 81 mg Tablet,Delayed Release (Dr/Ec)
81 mg PO DAILY
Rx Instructions:
Continue while xarelto on hold
Discharge Orders:
Discharge Patient (As Directed); Ordered 11/28/24
Ordered By: Kari Mckeon
Care Plan Goals
Care Plan Goals:
Problem: Readiness for enhanced knowledge related to diagnosis and treatment plan
Goal: Understand your diagnosis and treatment plan needs, including medications if applicable.
Instructions: Know your diagnosis, underlying causes and treatment plan options, including medications if applicable. Consult with your health care team to learn about your diagnosis and treatment plan, including medications if applicable.
Discharge Date and Time
Print Language: YORUBA
[2024-11-28 12:10] VITALS: BP 126/68
--- NOTE | 2024-11-28 13:10 | PTCARENOTE ---
Patient discharged to home. IV and telemetry removed. Teaching reviewed with patient and spouse, they verbalized understanding. Patient escorted to main lobby in a wheelchair
== END 2024-11-28 15:01 | disposition home or self-care (01) | DRG 267 ==
LOC: IVU 07:20
PROVIDERS: ADMITTING PHYSICIAN Thoracic Surgery (Cardiothoracic Vascular Surgery); FAMILY PHYSICIAN Family Medicine; OTHER PHYSICIAN Internal Medicine Interventional Cardiology
PROC: 02RF38Z Replacement of Aortic Valve with Zooplastic Tissue, Percutaneous Approach (ICD-10-PCS; 2024-11-27)
DX: I35.0 Nonrheumatic aortic (valve) stenosis (principal); I50.32 Chronic diastolic (congestive) heart failure; I11.0 Hypertensive heart disease with heart failure; E78.5 Hyperlipidemia, unspecified; I48.0 Paroxysmal atrial fibrillation; R00.1 Bradycardia, unspecified; G47.33 Obstructive sleep apnea (adult) (pediatric); I25.10 Atherosclerotic heart disease of native coronary artery without angina pectoris; Z95.0 Presence of cardiac pacemaker; Z95.5 Presence of coronary angioplasty implant and graft; Z85.01 Personal history of malignant neoplasm of esophagus
CPT/HCPCS: 33361; 36415; 71045; 71046; 80048; 80053; 81003; 82248; 83036; 83735; 83880; 85025; 85027; 85347; 85610; 86850; 86900; 86901; 87070; 87147; 93005; 93308; 93321; 93325; C1760; C1769; C1894; Q9967

== ENCOUNTER 2024-12-06 18:10 | Observation (INO) | payer BC, MEDICARE, SELFPAY ==
[2024-12-06] VITALS (9 sets, daily range): BP systolic 85–174; BP diastolic 68–86; BMI 21.6; BMI 21.0
--- NOTE | 2024-12-06 15:39 | ED.GENMED ---
History of Present Illness
General
Chief Complaint: Post Operative Problem(s)
Time Seen by Provider: 12/06/24 14:32
History of Present Illness
History of Present Illness:
84-year-old male presents to the emergency department for evaluation of significant bruising and swelling to the left groin, he is 10 days status post TAVR performed at this hospital. He is on Xarelto. Mild discomfort, denies severe pain. No
fevers or chills. No dysuria or hematuria.
Review of Systems
Review of Systems
Allergies reviewed?: Yes
All Other Systems: ROS reviewed and negative except as documented in HPI and ROS
Phy Exam
Physical Exam
Physical Exam:
GEN: Well appearing, NAD, WDWN
HEENT: Oral mucosa moist, no scleral icterus
Cardiac: Regular rate
Lung: No respiratory distress, no tachypnea
: Marked swelling and induration to the left femoral access site with significant ecchymosis extending into the scrotum and penis
MSK: No gross deformity or injuries
Skin: Good color, no pallor or jaundice, no rashes
Neuro: AO x3, moves all extremities freely
Psych: Calm, cooperative
Course
Orders/Labs/Results
Orders:
Orders
12/06/24 14:49
US Groin (vascular exam) LT Urgent
Comment:
Reason For Exam: groin hematoma/poss pseudoaneurysm
12/06/24 17:20
CARDIOLOGY CONSULT Routine
Consulting Provider: Candice Shore
Was physician already notified: Yes
Reason for consult: left pseudoaneurysm
12/06/24 17:21
SURGICAL CONSULT Routine
Consulting Provider: Jesse Tovar
Was physician already notified: Yes
Reason for consult: left pseudoaneurysm
12/06/24 17:22
Admit/Transfer Patient As Directed
Co-Sign Provider:
Level of Care: Observation services
Assign to:: Telemetry
Physician / Group: inés bundy
Diagnosis: left pseudoaneurysm s/p TAVR
Reason for Telemetry: Arrhythmia
Date to Stop Telemetry: 12/09/24
Time to Stop Telemetry: 11:00
Code Status As Directed
Resuscitation Status: Full Code
IRAD CONSULT Routine
Consulting Provider: Jesse Guerrero
Was physician already notified: Yes
Procedure being ordered, including laterality if applicable: left pseudoaneurysm
Acknowledgement that appropriate orders are entered: Yes
12/06/24 17:25
PRN Pain Medication Management As Directed
May give lesser potent ordered pain med per pt: Yes
preference::
Protocol:: Medication orders for pain may be administered in a
manner that supports deferring to patient preference
when the pt is:
- Requesting an ordered lesser potent pain medication.
Least to most potent pain medications are defined
as: acetaminophen < NSAID < tramadol < opioids
(morphine, oxycodone, hydromorphone).
- Requesting a lesser dose of the same medication IF
ORDERED.
- Requesting a less intrusive route of administration
if both routes are prescribed by the provider (PO <
IV).
12/06/24 17:35
BMP [Basic Metabolic Panel] Urgent
CBC/With Diff [Complete Blood Count/With Diff] Urgent
12/06/24 17:54
Thrombin Topical (Bovine) [Thrombin-Jmi 5000 Units] 5,000 units .ROUTE .STK-MED ONE
12/09/24 11:00
DC Protocol for Telemetry ONCE
Abnormal Lab Results
12/06/24
17:35
RBC 3.74 L 10^6/uL
(4.70-6.10)
Hgb 10.2 L g/dL
(13.0-18.0)
Hct 31.7 L %
(39.0-52.0)
MCHC 32.2 L g/dL
(33.0-37.0)
RDW 17.1 H %
(11.5-14.5)
Absolute Lymphs (auto) 1.1 L 10^3/uL
(1.2-3.4)
Absolute Monos (auto) 0.8 H 10^3/uL
(0.1-0.6)
Monocytes % 15.0 H %
(1.7-9.3)
12/06/24 17:35
12/06/24 17:35
Vital Signs
Initial and Last Documented VS:
Initial Vital Signs
Temp Pulse Resp BP Pulse Ox
98.5 F 63 16 131/71 99
12/06/24 13:39 12/06/24 13:39 12/06/24 13:39 12/06/24 13:39 12/06/24 13:39
Last Documented Vital Signs
Temp Pulse Resp BP Pulse Ox
98.3 F 85 14 174/69 96
12/06/24 17:58 12/06/24 18:31 12/06/24 18:31 12/06/24 18:31 12/06/24 18:31
MDM/Problems Addressed
MDM/Problems Addressed:
Imaging confirms presence of pseudoaneurysm. The patient will be admitted to the hospitalist service for IR consultation and intervention as deemed appropriate. Cardiology and CT surgery made aware
*Pulse Oximetry
SaO2: 99
Oxygen Mode of Delivery: Room air
Patient hypoxic: no
*Critical Care Note
Total Time (30-74mins, 75-104mins- exclusive of procedures): Not Applicable
ED Attending Note
-
Portions of this chart may have been created with voice recognition software.� Occasional wrong word or��sound alike� substitutions may have occurred due to the inherent limitations of voice recognition software.
Discharge Plan
Departure
Patient Disposition: Admit
Date of Disposition: 12/06/24
Time of Disposition: 16:27
Admit to: Med/Surg
Presentation/result/management discussed w/ accepting MD/DO: Hospitalist
Discharge Problem:
Pseudoaneurysm following procedure
Interventions
Interventions:
*Risk Screen - Suicide Last Done: 12/06/24 13:39
*General Assessment Last Done: 12/06/24 14:20
*Neglect/Abuse Screening Last Done: 12/06/24 13:39
*ED- Fall Risk Assessment Last Done: 12/06/24 14:20
*ED COVID-19 Vaccine History Last Done: 12/06/24 14:20
*Nursing Disposition Last Done: 12/06/24 19:49
ED-Skin Assessment Last Done: 12/06/24 14:20
Discharge Date and Time
Discharge Date/Time: 12/06/24 19:50
--- NOTE | 2024-12-06 16:42 | HPS.HSE ---
Addendum entered and electronically signed by Pancho Carrizales MD 12/06/24 17:33:
This is an addendum to H&P written by Angelica Winchester on 12/06/2024. �Patient seen and examined independently with DIRECTOR CASE.
84-year-old male past medical history of severe aortic stenosis status post TAVR on 11/27 through bilateral groin abscess, symptomatic bradycardia status post permanent pacemaker, paroxysmal atrial fibrillation on Xarelto, CAD status post stents on
10/22, diastolic CHF, hypertension, hyperlipidemia, esophageal cancer status post esophagectomy 1999 [place]/radiation/chemotherapy, bilateral cataract extraction, sleep apnea, GERD, former smoker, here for left-sided groin ecchymosis progressing to
the scrotum with mild pain.
Groin ultrasound showed pseudoaneurysm. �IR consulted for thrombin injection to be performed today. �Hold Xarelto. �Continue Plavix. �Cardiothoracic surgery and cardiology consulted as well. �Check BMP and CBC.
Original Note:
Family Physician
-
Family Physician: Evelia San
Chief Complaint
-
Left groin bruising and swelling
History of Present Illness
84-year-old male status post TAVR on 11/27/2024 Via left femoral artery he comes to the ER today complaining of increased bruising and swelling to the left groin over the past 9 days. He is on Xarelto for history of A-fib. On left groin ultrasound
he was noted to have a pseudoaneurysm of his left femoral artery. The patient denies fever, chills, chest pain, palpitations, cough, shortness of breath, abdominal pain, nausea, vomiting, diarrhea, urinary symptoms
The patient has past medical history of severe symptomatic aortic stenosis status post TAVR 11/28/2024, symptomatic bradycardia status post permanent pacemaker, HTN, HLD, paroxysmal A-fib, esophageal cancer S/P esophagectomy 2010/XRT/chemo, CAD status
post cardiac stents 09/2024 x 3, bilateral cataract extraction, sleep apnea unable to tolerate CPAP, GERD, ex-smoker, AFOGNAK
Medical History
Past Medical History
Past Medical History: Reports Other
Additional Past Medical History:
Severe symptomatic aortic stenosis status post TAVR 11/28/2024
Symptomatic bradycardia status post permanent pacemaker
HTN
HLD
Paroxysmal A-fib
Esophageal cancer S/P esophagectomy 2010/XRT/chemo
CAD status post cardiac stents 2024 x 3
Sleep apnea unable to tolerate CPAP
GERD
ex-smoker
AFOGNAK
Past Surgical History: Reports Other
Additional Past Surgical History:
bilateral cataract extraction
Esophageal cancer S/P esophagectomy XRT/chemo
Severe symptomatic aortic stenosis status post TAVR 11/28/2024
Symptomatic bradycardia status post permanent pacemaker
CAD status post cardiac stents 2024 x 3
Social History
Tobacco: Non-smoker
Alcohol: Occasional (A couple times a month)
Personal:
Living: With Family ()
Employment: Retired
Family History
Family History: Not pertinent
Allergies / Home Medications
Allergies reflects when Allergies were last updated in [employer].
Home Medications with original date entered in [employer]
Allergy/Medication List:
Allergies
Allergy/AdvReac Type Severity Reaction Status Date / Time
No Known Allergies Allergy Verified 12/06/24 13:39
Home Medications
esomeprazole magnesium 40 mg capsule,delayed release (Nexium) 40 mg PO DAILY Gastrointestinal Issue 10/08/24
clopidogrel 75 mg tablet (Plavix) 75 mg PO DAILY Blood Pressure 11/05/24
multivitamin 1 tab PO DAILY Supplement 11/27/24
rivaroxaban 15 mg tablet (Xarelto) 15 mg PO QPM Blood clot prevention/tx #30 tabs 11/27/24
rosuvastatin 10 mg tablet 10 mg PO DAILY High cholesterol #30 tabs 11/27/24
Review of Systems
-
History Source: Patient and Family ( at bedside)
A 12 point ROS was completed and negative except as noted: Yes
Constitutional: Denies Fever or Chills
EENT: Denies Sore Throat or Runny Nose
Respiratory: Denies Cough or Trouble Breathing
Cardiac: Denies Chest Pain, Diaphoresis, Palpitations or Syncope
Abdomen/GI: Denies Abdominal Pain, Nausea, Vomiting, Diarrhea, Constipated, Bloody Stools or Black Stools
: Denies Dysuria, Frequency, Flank Pain, Incontinence or Difficulty Voiding
Musculoskeletal: Denies Joint Pain or Edema
Skin: Reports Other (Left groin to scrotal bruising with soft tissue swelling at site of prior femoral artery access 11/27/2024); Denies Itching or Rash
Neurological: Denies Dizzy, Headache or Weakness
Endocrine: Reports No Symptoms
Hematologic/Lymphatic: Reports No Symptoms
Psych: Reports Calm
Physical Exam
Vital Signs
Vital Signs
Temp Pulse Resp BP Pulse Ox
98.5 F 63 16 131/71 99
12/06/24 13:39 12/06/24 13:39 12/06/24 13:39 12/06/24 13:39 12/06/24 15:41
Physical Exam
General: Comfortable and Conversant; No Fever or Chills
HEENT: NormoCephalic, Anicteric, Moist mucous membranes, PERRLA, [place] Conjunctivae and No Ptosis
Respiratory: Clear; No Wheezes, Rales or Rhonchi
Cardiac: S1/S2 and Regular Rhythm; No Murmur, Rub, Gallop or Peripheral Edema
Breast: Deferred by me
GI: Soft, Non Tender, Non Distended, Normal Bowel Sounds and No Hepatosplenomegaly
Rectal: Deferred by Provider
Genito-urinary: Other (Left groin to scrotal bruising with soft tissue swelling at site of prior femoral artery access 11/27/2024)
Musculoskeletal: No Clubbing, No Cyanosis and No Edema
Skin: Warm and Dry; No Rash
Neuro: AO x 3, No Motor Deficits, Nonfocal/grossly intact, Cranial Nerves Intact and No Sensory Deficits; No Slurred Speech, Facial Droop, Tremors or Sedated
Psych: Calm
Data Reviewed
-
Ultrasound: Report Reviewed by me
Impression/Plan
-
Impression/plan:
OB TELE
#Pseudoaneurysm LEFT Femoral artery status post TAVR/severe symptomatic aortic stenosis on Xarelto
#Severe symptomatic aortic stenosis status post TAVR with placement of a 26 mm Osullivan ASMITA ultra Resilia valve on 11/27/2024
- Consult CT surgery
- Consult cardiology�[facility] cardiology
- Consult IR-plan for thrombin injection today 12/06/2024
# Symptomatic bradycardia s/p Permanent Pacemaker placement
#Hypertension
BP 131/71
# HLD
- Continue Crestor 10 mg daily
#Paroxysmal atrial fibrillation
- Hold current Xarelto defer to cardiology
# GERD
- Continue Nexium 40 mg daily or equivalent
# History of esophageal cancer S/P esophagectomy 2010/XRT/chemo
#CAD status post cardiac stents 2024 x 3
- Continue Plavix 75 mg daily
Other PMH:
Bilateral cataract extraction
Sleep apnea unable to tolerate CPAP
Ex-smoker
AFOGNAK
DVT prophylaxis
Patient on prior Xarelto
Full code
--- NOTE | 2024-12-06 16:57 | W.PN.UPDATE ---
Update Note
Progress Note Update
Saw this 84 y/o gentleman in the ED as he had underrwent right trans femoral TAVR with a 26 mm +1 cc Osullivan TAVR valve on 11/27/24. He was discharged on Xarelto for a-fib and Plavix. Presents today due to increasing mass in left groin. He is
hemodynamically stable. US revealed pseudoaneurysm. Plan for IR intervention at some point. Will follow along.
--- NOTE | 2024-12-06 17:44 | CM ---
CM reviewed chart and met with pt and bedside in ED. Lives with in 2 story home, 2 [address], first floor set up.
Independent in ADLs, personal care and ambulation at baseline. No Aassistive device, no DME.
No hx VN or SNF.
PCP: Evelia San
Pharmacy: [facility]
Anticipate DC home, no needs. CM will continue to follow.
[2024-12-06 17:45] LABS: Hematocrit 31.7 % (39.0-52.0); Hemoglobin 10.2 g/dL (13.0-18.0); Mean Corp Hgb Conc. 32.2 g/dL (33.0-37.0); Mean Corpuscular Volume 84.8 fL (80.0-94.0); Nucleated Red Blood Cells % 0 % (-); Platelet Count 158 10^3/uL (130-400); Red Cell Dist. Width 17.1 % (11.5-14.5)
[2024-12-06 17:58] LABS: Blood Urea Nitrogen 20 mg/dl (9-20); Calcium 8.8 mg/dl (8.4-10.2); Carbon Dioxide 30 mmol/L (22-30); Chloride 103 mmol/L (98-107); Estimated Creatinine Clearance 69 ml/min; Glucose 91 mg/dl (70-99); Potassium 4.6 mmol/L (3.5-5.1); Sodium 136 mmol/L (135-145); eGFR > 60.00
--- NOTE | 2024-12-06 18:44 | W.PN.IRAD.PR ---
Procedure Note
-
Post successful thrombin injection L groin pseudoaneurysm. Bedrest x 2 hrs. Repeat US in AM (ordered) to confirm no further flow in PSA.
--- NOTE | 2024-12-06 20:00 | PTCARENOTE ---
Received patient from ED. Pt transferred flat from the [facility] to the bed. Patient placed on flat bedrest for 2 hours post procedure. Patient assessed. Patient AAOx3, denies pain. Left groin site swollen, firm with a clean dry intact bandaid.
Extensive ecchymosis of left groin. VPaced on the monitor. VSS. Patient oriented to the unit. Call lawson in reach.
[2024-12-07 03:46] VITALS: BP 138/71
[2024-12-07 06:00] VITALS: BMI 20.9
[2024-12-07 07:04] LABS: Hematocrit 31.8 % (39.0-52.0); Hemoglobin 10.1 g/dL (13.0-18.0); Mean Corp Hgb Conc. 31.8 g/dL (33.0-37.0); Mean Corpuscular Volume 85.0 fL (80.0-94.0); Platelet Count 161 10^3/uL (130-400); Red Cell Dist. Width 17.0 % (11.5-14.5)
[2024-12-07 07:30] VITALS: BP 125/66
--- NOTE | 2024-12-07 08:03 | W.PN.HOSP.TC ---
Today's Communication/Plan
-
follow up repeat US and further IR recs
Assessment / Plan
Assessment / Plan
Mr. Keaton Latif is a 84-year-old male past medical history of severe aortic stenosis status post TAVR on 11/27 through bilateral groin access, symptomatic bradycardia status post permanent pacemaker, paroxysmal atrial fibrillation on Xarelto,
CAD status post stents on 10/22, diastolic CHF, hypertension, hyperlipidemia, esophageal cancer status post esophagectomy 1999 [place]/radiation/chemotherapy, bilateral cataract extraction, sleep apnea, GERD, former smoker, here for left-sided groin
ecchymosis progressing to the scrotum with mild pain.
Groin ultrasound showed pseudoaneurysm. Patient is s/p IR guided thrombin injection.
12/06/24
IMPRESSION: Successful thrombin injection left groin pseudoaneurysm as described.
Pseudoaneurysm LEFT Femoral artery status post TAVR
-s/p IR thrombin injection 12/06/2024
-repeat US this AM
Severe symptomatic aortic stenosis status post TAVR with placement of a 26 mm Osullivan ASMITA ultra Resilia valve on 11/27/2024
-CT surgery and cardiology consulted
Symptomatic bradycardia s/p Permanent Pacemaker placement
Hypertension, not on medications
HLD
- Continue Crestor 10 mg daily
Paroxysmal atrial fibrillation
- Xarelto on hold, follow up with IR when OK to resume
GERD
- Continue Nexium 40 mg daily or equivalent
History of esophageal cancer S/P esophagectomy 2010/XRT/chemo
CAD status post cardiac stents 2024 x 3
- Continue Plavix 75 mg daily
Other PMH:
Bilateral cataract extraction
Sleep apnea unable to tolerate CPAP
Ex-smoker
[place]
DVT prophylaxis
Patient on prior Xarelto
Full code
Anticipated Discharge: Within 24 hours
Subjective/Interval History
-
Date of Service: December 07, 2024
feeling well
denies pain
Objective Data
-
Labs:
Laboratory Results
12/07/24
06:09
WBC 5.1
Hgb 10.1 L
Hct 31.8 L
Plt Count 161
Vital Signs:
Vital Signs
Temp Pulse Resp BP Pulse Ox
98.3 F 81 18 138/71 97
12/07/24 03:46 12/07/24 03:46 12/07/24 03:46 12/07/24 03:46 12/07/24 03:46
I&O
12/06/24 12/07/24 12/08/24
06:59 06:59 06:59
Intake Total 360 / 360
Output Total 1200 / 1200
Balance -840 / -840
Review of Systems
-
History Source: Patient
All other systems: Reviewed and negative
Physical Exam
-
General: No Apparent Distress and Comfortable
HEENT: PERRLA
Respiratory: Clear to Auscultation; Negative Wheezes
Cardiac: Regular Rhythm and S1/S2
GI: Soft and Nontender
Musculoskeletal: Other (left groin with bruising and mild lump at injection site (much improved per patient))
Skin: Warm and Dry; Negative Rash
Neuro: AO x 3
Psych: Calm
Data Reviewed
-
Diagnostic Radiology: Report Reviewed by me
Labs: Labs Reviewed by me
[2024-12-07] MEDS: PROTONIX 40 MG PO (08:31)
[2024-12-07] MEDS: THERAGRAN 1 TABLET PO (08:32)
[2024-12-07] MEDS: CRESTOR 10 MG PO (08:32)
[2024-12-07] MEDS: PLAVIX 75 MG PO (08:32)
[2024-12-07 11:15] VITALS: BP 105/58
--- NOTE | 2024-12-07 12:36 | W.PN.UPDATE ---
Update Note
Progress Note Update
Follow up US shows no flow in pseudoaneurysm consistent with successful thrombin injection. OK for d/c, f/u with cards/CTsurg.
--- NOTE | 2024-12-07 13:10 | W.DCSUMMARY ---
Discharge Summary
Discharge Data
Date of Admission: 12/06/24
Date of Discharge: 12/07/24
-
Pending Results: No
Hospital Course
Discharging Physician : Dr. Reema Syed
Disposition : Home
Primary care physician : Dr. Evelia San
Principal Discharge diagnosis : Left groin pseudoaneurysm status post thrombin jection
Hospital Course :
Mr. Keaton Latif is a 84-year-old male past medical history of severe aortic stenosis status post TAVR on 11/27 through bilateral groin access, symptomatic bradycardia status post permanent pacemaker, paroxysmal atrial fibrillation on Xarelto,
coronary artery disease, diastolic CHF, hypertension, hyperlipidemia, esophageal cancer status post esophagectomy 2000 [place]/radiation/chemotherapy, bilateral cataract extraction, sleep apnea, GERD, former smoker, presents with left-sided groin
ecchymosis progressing to the scrotum with mild pain. Groin ultrasound showed pseudoaneurysm. IR was consulted and patient is s/p thrombin injection. US repeated following morning showed no flow in pseudoaneurysm. Patient is resumed on his
Xarelto, Ok'd by IR. He will follow up as outpatient with Cardiology and CT surgeon, he already has appointments scheduled.
He is told to avoid strenuous activity for 3 days, Ok to shower.
Time spent on discharge was 31 minutes.
Important imaging findings :
Procedure findings :
Discharge Plan
-
Patient Disposition: Home (Routine Discharge)
Discharge Diagnosis/Procedures: pseudoaneurysm status post thrombin injection 12/06/24
Diet: Low Fat
Activity: As tolerated
Driving Restrictions: As prior to admission
Bathing Restrictions: None
Referrals:
Evelia San, DO [Family Provider, Family Practice] - in less than 1 week
Additional Discharge Medication Instructions: Avoid strenuous activity for 3 days. OK to shower today.
Prescriptions:
Continued
esomeprazole magnesium [Nexium] 40 mg Capsule,Delayed Release(Dr/Ec)
40 mg PO DAILY
clopidogrel [Plavix] 75 mg Tablet
75 mg PO DAILY
rosuvastatin 10 mg tablet
10 mg PO DAILY Qty: 30 5RF
Xarelto 15 mg tablet
15 mg PO QPM Qty: 30 5RF
therapeutic multivitamin Tablet
1 tab PO DAILY
Discharge Orders:
Discharge Patient (As Directed); Ordered 12/07/24
Ordered By: Reema Syed
Discharge Date and Time
Print Language: TURKMEN
--- NOTE | 2024-12-07 13:46 | W.DS.TRANS ---
DC Summary - Surveillance Camera Technician
-
Discharge Instructions:
Discharge Diagnosis/Procedures pseudoaneurysm status post thrombin injection
01/22
Diet Low Fat
Activity As tolerated
Driving Restrictions As prior to admission
Bathing Restrictions None
Instructions:
Stand-Alone Forms:
Changes to Home Medications: No
Discharge Medications:
DC Medications w/original date entered in [employer]
esomeprazole magnesium 40 mg capsule,delayed release (Nexium) 40 mg PO DAILY Gastrointestinal Issue 10/08/24
clopidogrel 75 mg tablet (Plavix) 75 mg PO DAILY Heart Disease/Condition 11/05/24
rivaroxaban 15 mg tablet (Xarelto) 15 mg PO QPM Blood clot prevention/tx #30 tabs 11/27/24
rosuvastatin 10 mg tablet 10 mg PO DAILY High cholesterol #30 tabs 11/27/24
therapeutic multivitamin 1 tab PO DAILY Supplement 12/06/24
Home Medication Changes
Pending Results: No
--- NOTE | 2024-12-07 13:49 | CM ---
CM following re: discharge planning.
Reviewed pt's chart, met with pt. Pt's spouse and son at bedside.
Discharge order noted. Both pt and his family are aware, expressed their agreement. Pt still OBS status.
No after care VN services indicated.
D/C plan: home no needs. Spouse and son to transport.
== END 2024-12-07 14:27 | disposition home or self-care (01) ==
LOC: 2 NORTH 18:10
PROVIDERS: Clinical Nurse Specialist Family Health; Nurse Practitioner Family; ADMITTING PHYSICIAN Hospitalist; ATTENDING PHYSICIAN Student in an Organized Health Care Education/Training Program; EMERGENCY PHYSICIAN Emergency Medicine; FAMILY PHYSICIAN Family Medicine
DX: T82.9XXA Unspecified complication of cardiac and vascular prosthetic device, implant and graft, initial encounter (principal); Y83.8 Other surgical procedures as the cause of abnormal reaction of the patient, or of later complication, without mention of misadventure at the time of the procedure; I72.4 Aneurysm of artery of lower extremity; E78.5 Hyperlipidemia, unspecified; I06.0 Rheumatic aortic stenosis; G47.30 Sleep apnea, unspecified; I11.0 Hypertensive heart disease with heart failure; I50.32 Chronic diastolic (congestive) heart failure; I25.10 Atherosclerotic heart disease of native coronary artery without angina pectoris; Z87.891 Personal history of nicotine dependence; I48.0 Paroxysmal atrial fibrillation; K21.9 Gastro-esophageal reflux disease without esophagitis; Z79.01 Long term (current) use of anticoagulants; Z79.02 Long term (current) use of antithrombotics/antiplatelets; Z79.899 Other long term (current) drug therapy; Z95.0 Presence of cardiac pacemaker; Z95.2 Presence of prosthetic heart valve; Z95.5 Presence of coronary angioplasty implant and graft; Z85.01 Personal history of malignant neoplasm of esophagus; Z92.3 Personal history of irradiation
CPT/HCPCS: 36002; 76942; 80048; 85025; 85027; 93926; 99284; G0378

== ENCOUNTER 2025-01-26 10:03 | Outpatient (RCR) | payer BC, SELFPAY | END 2025-01-26 23:59 | disposition home or self-care (01) | LOC: CRHB 10:03 | PROVIDERS: ATTENDING PHYSICIAN Internal Medicine Cardiovascular Disease | DX: Z95.4 Presence of other heart-valve replacement (principal) | CPT/HCPCS: 93797; 93798 ==

== ENCOUNTER 2025-02-20 08:57 | Outpatient (RCR) | payer BC, SELFPAY | END 2025-02-26 07:54 | disposition home or self-care (01) | LOC: CRHB 08:57 | PROVIDERS: ATTENDING PHYSICIAN Internal Medicine Cardiovascular Disease | DX: Z95.4 Presence of other heart-valve replacement (principal) | CPT/HCPCS: 93797; 93798; G0422; G0423 ==